=== PATIENT | female | born 1990 | race Caucasian/White ===

== ENCOUNTER 2023-11-26 11:45 | Emergency (ER) | payer BC, SELFPAY ==
[2023-11-26 11:46] VITALS: BP 140/96
[2023-11-26 12:00] VITALS: BP 137/86
[2023-11-26 12:32] LABS: % Basophils 0.4 % (0-2); % Eosinophils 0.6 % (0-6); % Immature Granulocytes 0.4 % (0-0.5); % Lymphocytes 15.5 % (20.5-51.1); % Monocytes 8.9 % (1.7-9.3); % Neutrophils 74.2 % (42.2-75.2); Absolute Basophils 0.1 10^3/uL (0-0.2); Absolute Eosinophils 0.1 10^3/uL (0-0.7); Absolute Immature Granulocytes 0.1 10^3/uL (0-0.05); Absolute Lymphocytes 1.8 10^3/uL (1.2-3.4); Absolute Neutrophils 8.7 10^3/uL (1.4-6.5); Hematocrit 33.3 % (37.0-47.0); Hemoglobin 11.9 g/dL (12.0-16.0); Mean Corp Hgb Conc. 35.7 g/dL (33.0-37.0); Mean Corpuscular Hgb 30.7 pg (27.0-31.0); Mean Platelet Volume 11.2 fL (7.4-10.4); Nucleated Red Blood Cells % 0 %; Platelet Count 202 10^3/uL (130-400); Red Blood Cell Count 3.87 10^6/uL (4.20-5.40); Red Cell Dist. Width 12.4 % (11.5-14.5); White Blood Cell Count 11.7 10^3/uL (4.8-10.8)
[2023-11-26 12:39] LABS: INR 0.99; PT 12.9 Sec (11.4-14.6)
[2023-11-26 12:43] LABS: ALT (SGPT) 13 U/L (0-35); AST (SGOT) 23 U/L (14-36); Albumin 3.8 g/dl (3.5-5.0); Alkaline Phosphatase 164 U/L (38-126); Blood Urea Nitrogen 8 mg/dl (7-17); Calcium 9.9 mg/dl (8.4-10.2); Carbon Dioxide 24 mmol/L (22-30); Chloride 106 mmol/L (98-107); Glucose 89 mg/dl (70-99); Potassium 4.3 mmol/L (3.5-5.1); Sodium 135 mmol/L (135-145); Total Bilirubin 0.4 mg/dl (0.2-1.3); Total Protein 6.9 g/dl (6.3-8.2); eGFR > 60.00
[2023-11-26 12:56] LABS: NT-proBNP 158 pg/ml; Troponin I < 0.012 ng/ml
[2023-11-26 13:00] VITALS: BP 125/87
--- NOTE | 2023-11-26 13:46 | ED.GENMED ---
History of Present Illness
General
Chief Complaint: Heart Rate Problem
Time Seen by Provider: 11/26/23 12:12
Travel History
Have you had any contact with someone who has COVID-19?: No
Do you have any symptoms of coronavirus? Fever > 100 degrees, chills, cough, shortness of breath, sore throat, loss of taste or smell, muscle aches, or headache?: No
History of Present Illness
History of Present Illness:
32-year-old female, G2, P1 currently 38 weeks and 6 days gestational age, presents to the emergency department for evaluation of heart palpitations that began abruptly yesterday. She has had frequent bouts of transient symptoms lasting several
minutes and spontaneously resolving. No obvious provoking or palliating factors. Denies any associated fevers or chills. No chest pain, shortness of breath, or calf cramping. Was advised to seek emergency department evaluation by her DIE MOUNTER with
plans to do a nonstress test if other medical evaluation was unremarkable
Past History
Past History
ED Past Medical History: Asthma and GERD
ED Past Surgical History: Tonsilectomy
Social History
Tobacco: Non-smoker
Alcohol: None
Personal: Single
Living: with family
Employment: Student
Family History
Family History: Negative Early CAD or CAD
Review of Systems
Review of Systems
Allergies reviewed?: Yes
All Other Systems: ROS reviewed and negative except as documented in HPI and ROS
Phy Exam
Physical Exam
Physical Exam:
GEN: Well appearing, NAD, WDWN
HEENT: Oral mucosa moist, no scleral icterus
Cardiac: Regular rate and rhythm, no murmurs
Lung: No respiratory distress, no tachypnea, lungs clear to auscultation bilaterally
MSK: No gross deformity or injuries. 1+ pitting edema bilateral lower extremities, no calf tenderness, negative Homans' sign bilaterally
Skin: Good color, no pallor or jaundice, no rashes
Neuro: AO x3, moves all extremities freely
Psych: Calm, cooperative
Course
Orders/Labs/Results
Orders:
Orders
11/26/23 11:49
ECG [Electrocardiogram (*1)] Urgent
Reason for Study: Palpitations
EKG- Treatment ONCE
11/26/23 12:14
Complete Blood Count/With Diff Urgent
Comprehensive Metabolic Panel Urgent
NT-proBNP Urgent
Prothrombin Time Urgent
TSH Reflex To Free T4 Urgent
Comment: ADD ON
Troponin I Urgent
11/26/23 13:40
Add On- LAB Urgent
Tests Added?: tsh reflex t4
Abnormal Lab Results
11/26/23
12:14
WBC 11.7 H 10^3/uL
(4.8-10.8)
RBC 3.87 L 10^6/uL
(4.20-5.40)
Hgb 11.9 L g/dL
(12.0-16.0)
Hct 33.3 L %
(37.0-47.0)
MPV 11.2 H fL
(7.4-10.4)
Abs Immat Gran (auto) 0.1 H 10^3/uL
(0-0.05)
Absolute Neuts (auto) 8.7 H 10^3/uL
(1.4-6.5)
Absolute Monos (auto) 1.0 H 10^3/uL
(0.1-0.6)
Lymphocytes % 15.5 L %
(20.5-51.1)
Creatinine 0.5 L mg/dL
(0.6-1.0)
Alkaline Phosphatase 164 H U/L
(38-126)
11/26/23 12:14
11/26/23 12:14
Vital Signs
Initial and Last Documented VS:
Initial Vital Signs
Temp Pulse Resp BP Pulse Ox
98.1 F 107 20 140/96 99
11/26/23 11:46 11/26/23 11:46 11/26/23 11:46 11/26/23 11:46 11/26/23 11:46
Last Documented Vital Signs
Temp Pulse Resp BP Pulse Ox
98.1 F 80 20 133/77 98
11/26/23 11:46 11/26/23 16:15 11/26/23 16:15 11/26/23 16:11 11/26/23 16:15
MDM/Problems Addressed
MDM/Problems Addressed:
32-year-old female presents with transient heart palpitations. She had no events on telemetry in the emergency department and her lab evaluation and EKG are unremarkable. She has no chest pain or clinical signs of DVT that would be worrisome for
pulmonary embolism. She has no respiratory complaints otherwise thus I do not feel chest imaging is necessary. Evaluation was benign. Nonstress test will be performed at the bedside in the ER by labor and delivery nursing and if unremarkable the
patient will be discharged home
Comment
Comment:
EKG independently interpreted by me shows a normal sinus rhythm at a rate of [address] changes concerning for ischemia, QTc of 445
*Critical Care Note
Total Time (30-74mins, 75-104mins- exclusive of procedures): Not Applicable
ED Attending Note
-
Portions of this chart may have been created with voice recognition software.� Occasional wrong word or��sound alike� substitutions may have occurred due to the inherent limitations of voice recognition software.
Discharge Plan
Departure
Patient Disposition: Home (Routine Discharge)
Date of Disposition: 11/26/23
Time of Disposition: 17:01
Patient with high blood pressure during this ER visit?: No
Discharge Problem:
Heart palpitations, 39 weeks gestation of
Instructions: Palpitations (DC)
Prescriptions:
No Action
Vitamin Tablet
1 tab PO DAILY
Referrals:
Kinjal Harris PA-C [Family Provider] -
Activity Restrictions/Additional Instructions:
Monitor your heart rates during any similar events by either measuring your pulse, or using your Apple watch. If you develop palpitations associated with chest pain, trouble breathing or severe dizziness/lightheadedness, return to the ER immediately
Interventions
Interventions:
*Risk Screen - Suicide Last Done: 11/26/23 12:23
*General Assessment Last Done: 11/26/23 12:23
*Neglect/Abuse Screening Last Done: 11/26/23 12:23
ED- Fall Risk Assessment Last Done: 11/26/23 14:24
*ED COVID-19 Vaccine History Last Done: 11/26/23 12:23
*Nursing Disposition Last Done: 11/26/23 17:05
ED- Cardiac Assessment Last Done: 11/26/23 12:23
ED- Pulmonary Assessment Last Done: 11/26/23 12:23
Discharge Date and Time
Discharge Date/Time: 11/26/23 17:05
Print Language: BULGARIAN
[2023-11-26 14:00] VITALS: BP 126/79
[2023-11-26 14:57] LABS: TSH Reflex To Free T4 1.28 uIU/ml (0.47-4.68)
[2023-11-26 16:11] VITALS: BP 133/77
--- NOTE | 2023-11-26 17:03 | CON.MD ---
Consultation - Medical
-
32yo at 38+5wks seen in the ER today due to episodes of palpitations over the past day. Intermittent, associated with some mild nausea and feeling a little bit faint. No CP, SOB, leg pain. Hasn't had sx like this before. has been
uncomplicated thus far. No ctxs, lof, vb. +FM. Spoke to her on the phone earlier and told her to go to the ER for evaluation.
Since being in the ER, has not had the sx. Still no OB-related concerns. Active Fetus.
ROS as above, o/w uncomplicated.
med: pnv
nkda
PMH reviewed, uncomplicated
VS wnl- BP 133/70, HR 80, RR 20, T 98.1F, SpO2 98%RA
NAD, WD/WN
Abd nttp, gravid
Extr: +1 b/l LE edema, symmetrical, no calf TTP
CBC, CMP, TSH and pro-BNP all wnl, troponin neg. EKG nml. Tele has been nml, per ER LEAVE COORDINATOR. CV exam nml per ER physician.
RNST, BL 120, mod javier, +accels, no decel, occ ctx
A/P 32yo at 38+5wks seen in the ER today due to episodes of palpitations; Normal VS, labs, EKG and telemetry monitoring.
Reassuring status and no acute OB-related concerns-- cleared for d/c home from an OB perspective.\\
-May D/c home when final clearance is given by ER provider
-f/u with OB in office tomorrow as scheduled. Given strong labor precautions, movement precautions and return precautions for persistent, worsening or new CV symptoms. Pt expressed understanfing.
Saurav Valentine, DO
--- NOTE | 2023-11-26 17:12 | PTCARENOTE ---
EFM applied. Reactive NST. FHR 125. Dr Valentine aware.
== END 2023-11-26 17:05 | disposition home or self-care (01) ==
LOC: EMR 11:45
PROVIDERS: EMERGENCY PHYSICIAN Emergency Medicine; FAMILY PHYSICIAN Physician Assistant Medical; OTHER PHYSICIAN Obstetrics & Gynecology
DX: O26.893 Other specified pregnancy related conditions, third trimester (principal); R00.2 Palpitations; Z3A.39 39 weeks gestation of pregnancy
CPT/HCPCS: 99284; 80053; 83880; 84443; 84484; 85025; 85610; 93005

== ENCOUNTER 2023-11-27 17:28 | Inpatient (IN) | payer BC, SELFPAY ==
[2023-11-27 16:58] VITALS: BP 143/88; BMI 30.1
[2023-11-27 19:00] LABS: % Basophils 0.5 % (0-2); % Eosinophils 1.1 % (0-6); % Immature Granulocytes 0.4 % (0-0.5); % Lymphocytes 18.7 % (20.5-51.1); % Monocytes 11.3 % (1.7-9.3); Absolute Basophils 0.1 10^3/uL (0-0.2); Absolute Eosinophils 0.1 10^3/uL (0-0.7); Absolute Lymphocytes 1.9 10^3/uL (1.2-3.4); Absolute Monocytes 1.1 10^3/uL (0.1-0.6); Absolute Neutrophils 6.9 10^3/uL (1.4-6.5); Hematocrit 34.3 % (37.0-47.0); Hemoglobin 12.3 g/dL (12.0-16.0); Mean Corp Hgb Conc. 35.9 g/dL (33.0-37.0); Mean Corpuscular Hgb 30.8 pg (27.0-31.0); Mean Corpuscular Volume 85.8 fL (81.0-99.0); Mean Platelet Volume 11.3 fL (7.4-10.4); Nucleated Red Blood Cells % 0 %; Platelet Count 234 10^3/uL (130-400); Red Cell Dist. Width 12.3 % (11.5-14.5); Urine Albumin Negative (Neg - Trace); Urine Bilirubin Negative (Negative); Urine Character Clear (Clear); Urine Color Straw; Urine Glucose Negative (Negative); Urine Ketone Negative (Negative); Urine Leukocyte 1+ (Negative); Urine Nitrite Negative (Negative); Urine Occult Blood Trace (Negative); Urine Specific Gravity 1.005 (<1.030); Urine Urobilinogen Negative (Neg - 1+); White Blood Cell Count 10.1 10^3/uL (4.8-10.8)
[2023-11-27 19:10] LABS: Urine Squamous Cell 26-30 /LPF (Few)
[2023-11-27 19:11] LABS: Urine Bacteria Few (Negative)
[2023-11-27 19:16] LABS: ALT (SGPT) 12 U/L (0-35); AST (SGOT) 23 U/L (14-36); Alkaline Phosphatase 176 U/L (38-126); Blood Urea Nitrogen 7 mg/dl (7-17); Calcium 9.7 mg/dl (8.4-10.2); Carbon Dioxide 20 mmol/L (22-30); Chloride 104 mmol/L (98-107); Estimated Creatinine Clearance > 125 ml/min; Glucose 80 mg/dl (70-99); Potassium 4.2 mmol/L (3.5-5.1); Sodium 133 mmol/L (135-145); Total Bilirubin 0.5 mg/dl (0.2-1.3); eGFR > 60.00
[2023-11-27 19:17] LABS: Urine Protein 13 mg/dl
[2023-11-27] MEDS: CYTOTEC 25 MICROGRAM VAG (20:06)
[2023-11-28] MEDS: CYTOTEC 50 MICROGRAM PO ×2 (00:09→05:16)
[2023-11-28] MEDS: PITOCIN 30 UNITS/NSS 500 ML IV (10:09)
[2023-11-28] MEDS: CYTOTEC PO ×2 (10:13→15:30)
[2023-11-28] MEDS: PENICILLIN 110 UNITS IV (11:17)
[2023-11-28] MEDS: PENICILLIN 55 UNITS IV (15:22)
[2023-11-28] MEDS: SUBLIMAZE 100 MCG EPIDURAL (15:58)
[2023-11-28] MEDS: FENTANYL/BUPIVACAINE 100 EPIDURAL (16:07)
[2023-11-29] MEDS: MOTRIN 600 MG PO ×4 (02:23→21:12)
[2023-11-29 05:27] LABS: Hematocrit 29.8 % (37.0-47.0); Hemoglobin 10.6 g/dL (12.0-16.0)
[2023-11-29] MEDS: PRENATAL PLUS 1 TABLET PO (08:18)
[2023-11-29] MEDS: SENOKOT-S 1 TABLET PO (08:19)
[2023-11-29] MEDS: TYLENOL 650 MG PO (15:47)
[2023-11-30] MEDS: MOTRIN 600 MG PO (04:34)
[2023-11-30] MEDS: PRENATAL PLUS 1 TABLET PO (07:15)
[2023-11-30] MEDS: FEOSOL 325 MG PO (07:15)
[2023-11-30] MEDS: TYLENOL 650 MG PO (07:22)
[2023-11-30] MEDS: SENOKOT-S 1 TABLET PO (07:27)
[2023-12-01 15:08] LABS: Syphilis/T. pallidum Ab Reflex Negative (Negative)
== END 2023-11-30 13:04 | disposition home or self-care (01) | DRG 807 ==
LOC: LDRP 17:28
PROVIDERS: Obstetrics & Gynecology; ADMITTING PHYSICIAN Obstetrics & Gynecology
PROC: 3E0P7VZ Introduction of Hormone into Female Reproductive, Via Natural or Artificial Opening (ICD-10-PCS; 2023-11-27)
PROC: 0HQ9XZZ Repair Perineum Skin, External Approach (ICD-10-PCS; 2023-11-28)
PROC: 10E0XZZ Delivery of Products of Conception, External Approach (ICD-10-PCS; 2023-11-28)
PROC: 0UQMXZZ Repair Vulva, External Approach (ICD-10-PCS; 2023-11-28)
PROC: 10907ZC Drainage of Amniotic Fluid, Therapeutic from Products of Conception, Via Natural or Artificial Opening (ICD-10-PCS; 2023-11-28)
DX: O14.04 Mild to moderate pre-eclampsia, complicating childbirth (principal); Z37.0 Single live birth; O99.824 Streptococcus B carrier state complicating childbirth; O99.52 Diseases of the respiratory system complicating childbirth; J45.909 Unspecified asthma, uncomplicated; O70.0 First degree perineal laceration during delivery; O69.81X0 Labor and delivery complicated by cord around neck, without compression, not applicable or unspecified; O66.0 Obstructed labor due to shoulder dystocia; Z3A.39 39 weeks gestation of pregnancy
CPT/HCPCS: 80053; 81003; 81015; 82570; 84156; 85014; 85018; 85025; 86780; 86850; 86900; 86901